=== PATIENT | male | born 1970 | race Caucasian/White ===

== ENCOUNTER 2020-12-11 10:30 | Emergency (ER) | payer BC, OTHER ==
[~2020-12-11] VITALS: Ht 180.3 cm; Wt 125.8 kg
[2020-12-11] MEDS ORDERED: LISI20TA33 PO (10:39)
[2020-12-11] MEDS ORDERED: AMLO1TAB24 PO (10:39)
[2020-12-11 12:16] LABS: BASO % 0.3 % (0.0-1.0); EOS % 0.1 % (0.0-3.0); HEMATOCRIT 42.4 % (42.0-52.0); HEMOGLOBIN 14.9 g/dl (13.5-17.5); LYMPH # 0.8 10^3/uL (1.5-5.0); MEAN CORPUSCULAR HEMOGLOBIN 31.3 pg (27.0-33.0); MEAN CORPUSCULAR HGB CONC 35.1 g/dl (32.0-36.5); MEAN CORPUSCULAR VOLUME 89.1 fl (80.0-96.0); MONO # 0.5 10^3/uL (0.0-0.8); MONO % 4.8 % (2.0-8.0); NEUTROPHILS # 8.1 10^3/uL (1.5-8.5); NEUTROPHILS % 86.4 % (36.0-66.0); PLATELET COUNT, AUTOMATED 187 10^3/uL (150-450); RED BLOOD COUNT 4.76 10^6/uL (4.30-6.10); WHITE BLOOD COUNT 9.4 10^3/uL (4.0-10.0)
[2020-12-11 12:27] LABS: INR 1.01; PROTHROMBIN TIME 13.6 SECONDS (12.5-14.3)
[2020-12-11 12:28] LABS: PARTIAL THROMBOPLASTIN TIME 28.6 SECONDS (24.2-38.5)
[2020-12-11 12:30] LABS: ALT/SGPT 66 U/L (12-78); BILIRUBIN,DIRECT 0.2 MG/DL (0.0-0.2); BILIRUBIN,TOTAL 0.8 MG/DL (0.2-1.0); BLOOD UREA NITROGEN 8 MG/DL (7-18); CALCIUM LEVEL 9.2 MG/DL (8.5-10.1); CARBON DIOXIDE LEVEL 24 MEQ/L (21-32); CHLORIDE LEVEL 102 MEQ/L (98-107); CREATININE FOR GFR 0.85 MG/DL (0.70-1.30); GLOMERULAR FILTRATION RATE > 60.0 (>56); GLUCOSE, FASTING 145 MG/DL (70-100); LIPASE 156 U/L (73-393); SODIUM LEVEL 135 MEQ/L (136-145); TOTAL PROTEIN 7.8 GM/DL (6.4-8.2)
[2020-12-11 13:30] VITALS: BP 154/79
--- NOTE | 2020-12-11 15:35 | ECGEPIP ---
[facility] - ED Test Date: 2020-12-11 Pat Name: MAURICIO BURR Department: Room: - Gender: Male [employer]: SUKUMAR : 1970 Requested By: JANE Neal Order Number: [id number] Reading MD: Hyacinth Maznano Measurements Intervals Marsing Rate: 109 P: 36 AK: 164 QRS: 6 QRSD: 90 T: 30 QT: 326 QTc: 439 Interpretive Statements Sinus tachycardia with occasional premature ventricular complexes NSTTW abnormalities No prior Electronically Signed on 12-11-2020 15:35:18 EDT by Hyacinth Manzano
== END 2020-12-11 13:44 | disposition home or self-care (01) ==
LOC: M ED 10:30
DX: R10.84 Generalized abdominal pain (principal); I10 Essential (primary) hypertension

== ENCOUNTER → 2023-11-10 | Outpatient (CLI) | payer BC ==
[~2023-11-10] MED LIST: AMLO1TAB24 PO; LISI20TA33 PO
== END ==
LOC: M WUC 09:54
PROVIDERS: ATTEND Physician Assistant Medical
DX: M54.50 Low back pain, unspecified (principal); M25.552 Pain in left hip; M47.816 Spondylosis without myelopathy or radiculopathy, lumbar region; M16.12 Unilateral primary osteoarthritis, left hip